=== PATIENT | male | born 1940 | race Caucasian/White ===

== ENCOUNTER → 2016-10-22 | Outpatient (CLI) | payer MEDICARE, OTHER ==
--- NOTE | 2016-10-23 03:26 | HKNOTE ---
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 MANAGEMENT: Under sterile conditions, given injection of 2 mL of Kenalog and 10 mL of 2% lidocaine into the trochanteric bursa. Note that he and his are going to [place] and [place] for 6 weeks. He will see me after he return s if he continues to have pain. Note also that he has had 2 spine surgeries separately. He gets occasional pain on the lateral side of the leg from the knee to the ankle. He is advised that this is probably residual from his spine . Dictated By: ARIADNE MIMS/THOMAS Conf#: [id number] DID#: [id number]
== END | disposition home or self-care (01) ==
LOC: HKI 15:36
DX: M70.61 Trochanteric bursitis, right hip (principal)
CPT/HCPCS: 20610; G0463